=== PATIENT | male | born 1940 | race Caucasian/White ===

== ENCOUNTER 2017-12-05 11:15 | Inpatient (IN) | payer MEDICARE, OTHER ==
[~2017-12-05] VITALS: Ht 180.3 cm; Wt 73.0 kg
[~2017-12-05 11:15] MED LIST: ASPI-1009 PO; ATOR20TA PO
[2017-12-05 11:45] LABS: BASOPHILS # (AUTO) 0.1 X10'3 (0-0.2); EOSINOPHILS # (AUTO) 0.2 X10'3 (0-0.9); EOSINOPHILS % (AUTO) 2.5 % (0-6); HEMATOCRIT 33.1 % (42.0-52.0); HEMOGLOBIN 11.3 g/dl (14.0-17.9); LYMPHOCYTES # (AUTO) 1.4 X10'3 (1.1-4.8); LYMPHOCYTES % (AUTO) 16.2 % (21-51); MEAN CORPUSCULAR HEMOGLOBIN 30.3 PG (27.0-31.0); MEAN CORPUSCULAR VOLUME 89.1 FL (78-98); MEAN PLATELET VOLUME 6.9 FL (7.4-10.4); MONOCYTES # (AUTO) 0.8 X10'3 (0-0.9); MONOCYTES % (AUTO) 9.6 % (2-12); NEUTROPHILS # (AUTO) 6.3 X10'3 (1.8-7.7); NEUTROPHILS % (AUTO) 70.7 % (42-75); PLATELET COUNT 258 X10'3 (140-440); RED BLOOD COUNT 3.72 X10'6 (4.70-6.10); RED CELL DISTRIBUTION WIDTH 17.1 % (11.5-14.5); WHITE BLOOD COUNT 8.9 X10'3 (4.5-11.0)
[2017-12-05 12:00] LABS: ALANINE AMINOTRANSFERASE 12 U/L (12-78); ALBUMIN 2.7 G/DL (3.4-5.0); ALBUMIN/GLOBULIN RATIO 0.7 (1.1-1.5); ALKALINE PHOSPHATASE 75 IU/L (46-116); ANION GAP 5 (8-16); ASPARTATE AMINO TRANSFERASE 16 U/L (10-37); BILIRUBIN,TOTAL 0.5 MG/DL (0.1-1.0); BLOOD UREA NITROGEN 8 MG/DL (7-18); CALCIUM 8.7 MG/DL (8.5-10.1); CHLORIDE 105 MMOL/L (99-107); GLUCOSE 107 MG/DL (70-104); SODIUM 139 MMOL/L (135-145); TOTAL CARBON DIOXIDE 28.9 MMOL/L (24-32); TOTAL PROTEIN 6.6 G/DL (6.4-8.2); eGFR > 90 ML/MIN
[2017-12-05 12:04] LABS: D-DIMER 4.65 MG/L FEU (0-0.50)
[2017-12-05] MEDS ORDERED: magnesium Cl slow-release 64mg tablet PO PRN (12:35)
[2017-12-05] MEDS ORDERED: morphine 2 MG/ML inj. syringe IV PRN ×2 (12:35)
[2017-12-05] MEDS ORDERED: ondansetron/PF 4mg/2ml inj IV PRN (12:35)
[2017-12-05] MEDS ORDERED: HYDROcodone/acetaminophen 10/325mg tab PO PRN (12:35)
[2017-12-05] MEDS ORDERED: mag hydrox/Alum hydrox/simeth 30ml oral suspension PO PRN (12:35)
[2017-12-05] MEDS ORDERED: HYDROmorphone 1 mg/ml syringe IV PRN (12:35)
[2017-12-05] MEDS ORDERED: magnesium hydroxide 30ml (MOM) UD suspension PO PRN (12:35)
[2017-12-05] MEDS ORDERED: potassium Cl 20 mEq SR tablet PO PRN ×2 (12:35)
[2017-12-05] MEDS ORDERED: HYDROcodone/acetaminophen 5mg/325mg tablet PO PRN (12:35)
[2017-12-05] MEDS ORDERED: magnesium 2GM in 50ml NS 50 ML IV PRN (12:35)
[2017-12-05] MEDS ORDERED: bisacodyl 10mg suppository rectal RC PRN (12:35)
[2017-12-05] MEDS ORDERED: acetaminophen 325mg tablet PO PRN ×2 (12:35)
[2017-12-05] MEDS ORDERED: magnesium 4gm in 100ml NS 100 ML IV PRN (12:35)
[2017-12-05] MEDS ORDERED: potassium Cl 40MEQ/NS 500ml 500 ML IV PRN ×2 (12:35)
[2017-12-05] MEDS ORDERED: heparin 10,000 units/1 ML INJ IV ONE (12:40)
[2017-12-05] MEDS ORDERED: iohexol 350MG/ML 100ml bottle IV ONE (13:20)
[2017-12-05] MEDS ORDERED: heparin 10,000 units/1 ML INJ IV PRN (16:00)
[2017-12-05 17:17] VITALS: BP 142/71
[2017-12-05 18:00] VITALS: BP 142/72
[2017-12-05] MEDS: docusate sod 100mg capsule PO SCH (20:41)
[2017-12-05] MEDS ORDERED: temazepam 15mg capsule PO PRN (21:00)
[2017-12-05] MEDS ORDERED: atorvastatin 20mg tablet PO SCH (21:00)
[2017-12-05 22:00] VITALS: BP 146/64
[2017-12-06 05:00] VITALS: BP 106/52
[2017-12-06 06:07] LABS: BASOPHILS # (AUTO) 0.1 X10'3 (0-0.2); BASOPHILS % (AUTO) 1.2 % (0-1); EOSINOPHILS # (AUTO) 0.4 X10'3 (0-0.9); EOSINOPHILS % (AUTO) 5.1 % (0-6); HEMATOCRIT 30.7 % (42.0-52.0); HEMOGLOBIN 10.3 g/dl (14.0-17.9); LYMPHOCYTES # (AUTO) 1.8 X10'3 (1.1-4.8); MEAN CORPUSCULAR HEMOGLOBIN 30.1 PG (27.0-31.0); MEAN CORPUSCULAR HGB CONC 33.5 % (33.0-36.5); MEAN PLATELET VOLUME 8.5 FL (7.4-10.4); MONOCYTES # (AUTO) 0.7 X10'3 (0-0.9); MONOCYTES % (AUTO) 8.9 % (2-12); NEUTROPHILS # (AUTO) 4.5 X10'3 (1.8-7.7); NEUTROPHILS % (AUTO) 60.8 % (42-75); PLATELET COUNT 178 X10'3 (140-440); RED BLOOD COUNT 3.41 X10'6 (4.70-6.10); RED CELL DISTRIBUTION WIDTH 16.5 % (11.5-14.5); WHITE BLOOD COUNT 7.4 X10'3 (4.5-11.0)
[2017-12-06 06:29] LABS: ALBUMIN 2.1 G/DL (3.4-5.0); ANION GAP 5 (8-16); BLOOD UREA NITROGEN 7 MG/DL (7-18); CALCIUM 8.1 MG/DL (8.5-10.1); CHLORIDE 106 MMOL/L (99-107); GLUCOSE 102 MG/DL (70-104); POTASSIUM 4.2 MMOL/L (3.5-5.1); SODIUM 137 MMOL/L (135-145); TOTAL CARBON DIOXIDE 25.6 MMOL/L (24-32); eGFR > 90 ML/MIN
[2017-12-06] MEDS ORDERED: aspirin 81mg tablet.DR PO SCH (08:00)
[2017-12-06] MEDS ORDERED: K and/or MAG REPLACEMENT MC SCH (08:00)
[2017-12-06] MEDS: docusate sod 100mg capsule PO SCH (08:31)
[2017-12-06] MEDS ORDERED: RIVA15TA PO (09:45)
[2017-12-06 10:09] VITALS: BP 124/61
[2017-12-06] MEDS ORDERED: rivaroxaban 15mg tablet PO SCH (20:00)
== END 2017-12-06 14:00 | disposition home or self-care (01) | DRG 299 ==
LOC: ER 11:16 → ED HOLD 12:35 → ORTHO 4S 15:25
PROVIDERS: ADMIT Internal Medicine; ATTEND Internal Medicine
PROC: B32T1ZZ Computerized Tomography (CT Scan) of Left Pulmonary Artery using Low Osmolar Contrast (ICD-10-PCS; principal; 2017-12-05)
PROC: B3201ZZ Computerized Tomography (CT Scan) of Thoracic Aorta using Low Osmolar Contrast (ICD-10-PCS; 2017-12-05)
PROC: B32S1ZZ Computerized Tomography (CT Scan) of Right Pulmonary Artery using Low Osmolar Contrast (ICD-10-PCS; 2017-12-05)
DX: I82.411 Acute embolism and thrombosis of right femoral vein (principal); E43 Unspecified severe protein-calorie malnutrition; D63.8 Anemia in other chronic diseases classified elsewhere; I82.431 Acute embolism and thrombosis of right popliteal vein; I82.441 Acute embolism and thrombosis of right tibial vein; Z68.22 Body mass index [BMI] 22.0-22.9, adult; Z79.899 Other long term (current) drug therapy
CPT/HCPCS: 36415; 71045; 71275; 80048; 80053; 83735; 84484; 85025; 85379; 85730; 87070; 93005; 93971; 99291; J1644; J7030; Q9967

== ENCOUNTER 2025-02-08 06:57 | Emergency (ER) | payer MEDICARE ==
[~2025-02-08] VITALS: Ht 182.9 cm; Wt 86.9 kg
[~2025-02-08 06:57] MED LIST changes: -ASPI-1009 PO; -ATOR20TA PO; +RIVA15TA PO
[2025-02-08 07:19] LABS: BILIRUBIN,URINE NEGATIVE (Neg); CLARITY,URINE CLEAR (Clear); COLOR,URINE YELLOW (Yellow); GLUCOSE, URINE NEGATIVE (Neg); KETONES,URINE NEGATIVE (Neg); LEUKOCYTE ESTERASE ,URINE NEGATIVE (Neg); NITRITES, URINE NEGATIVE (Neg); OCCULT BLOOD,URINE NEGATIVE (Neg); PH,URINE 5.5 (4.8-8.0); PROTEIN,URINE 30 mg/dl (Neg); UROBILINOGEN,URINE 0.2 E.U/dL (0.2-1.0)
[2025-02-08 07:21] LABS: UA COLLECTION TYPE CLN CATCH MIDSTREAM
[2025-02-08 07:25] LABS: BACTERIA,URINE NONE SEEN /HPF (Neg); RBC,URINE 0-2 /HPF (0-2); SQUAMOUS EPITHELIAL CELL,UR FEW /LPF (FEW)
[2025-02-08] MEDS: LidoCAINE 2% Topical Jelly 11mL syringe (UROJET) TOP ONE (08:04)
[2025-02-08 08:24] LABS: BASOPHILS % (AUTO) 0.1 % (0-1); EOSINOPHILS % (AUTO) 0 % (0-6); HEMATOCRIT 37.2 % (42.0-52.0); HEMOGLOBIN 12.7 g/dl (14.0-17.9); LYMPHOCYTES # (AUTO) 0.9 X10'3 (1.1-4.8); LYMPHOCYTES % (AUTO) 9.3 % (21-51); MEAN CORPUSCULAR HEMOGLOBIN 32.7 PG (27.0-31.0); MEAN CORPUSCULAR HGB CONC 34.1 g/dL (33.0-36.5); MEAN PLATELET VOLUME 9.5 FL (7.4-10.4); MONOCYTES % (AUTO) 9.8 % (2-12); NEUTROPHILS # (AUTO) 7.9 X10'3 (1.8-7.7); NEUTROPHILS % (AUTO) 80.8 % (42-75); PLATELET COUNT 141 X10'3 (140-440); RED BLOOD COUNT 3.88 X10'6 (4.70-6.10); RED CELL DISTRIBUTION WIDTH 14.5 % (11.5-14.5); WHITE BLOOD COUNT 9.8 X10'3 (4.5-11.0)
[2025-02-08 08:37] LABS: ALBUMIN 3.4 G/DL (3.4-5.0); ANION GAP 11 (8-16); BLOOD UREA NITROGEN 26 MG/DL (7-18); BUN/CREATININE RATIO 11.9 (10.0-20.0); CALCIUM 8.5 MG/DL (8.5-10.1); CHLORIDE 106 MMOL/L (99-107); CREATININE 2.18 MG/DL (0.60-1.10); GLUCOSE 119 MG/DL (70-104); POTASSIUM 4.1 MMOL/L (3.5-5.1); SODIUM 141 MMOL/L (135-145); TOTAL CARBON DIOXIDE 24.1 MMOL/L (24-32); eCRCL 28 ML/MIN; eGFR 29 ML/MIN
[2025-02-08 10:16] VITALS: BP 139/72; PULSE 72; RESP 14; TEMP 98.6; O2SAT 96
== END 2025-02-08 10:20 | disposition home or self-care (01) ==
LOC: ER 06:57
DX: R33.9 Retention of urine, unspecified (principal); I49.3 Ventricular premature depolarization; R00.1 Bradycardia, unspecified; N28.9 Disorder of kidney and ureter, unspecified
CPT/HCPCS: 36415; 51702; 51798; 80048; 81001; 85025; 87088; 93005; 99284; A4314; A4358